=== PATIENT | male | born 2000 | race Caucasian/White ===

== ENCOUNTER 2020-06-19 07:17 | Inpatient (IN) | payer OTHER, MEDICAID ==
[~2020-06-19] VITALS: Ht 175.3 cm; Wt 72.2 kg
--- NOTE | 2020-06-19 08:15 | NUR ---
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 STEADY UPON AMBULATION. NO ACUTE DISTRESS NOTED AT THIS TIME.
[2020-06-19] MEDS ORDERED: VANCOMYCIN PER PHARMACY MC ONE (09:00)
[2020-06-19] MEDS ORDERED: SODIUM CHLORIDE 0.9% 1,000ML IVBOLUS ONE (09:00)
[2020-06-19] MEDS ORDERED: AMPICILLIN/SULBACTAM 3 GM in SODIUM CHLORIDE 0.9% 100 ML IV ONE (09:00)
[2020-06-19] MEDS ORDERED: VANCOMYCIN 1,800 MG in SODIUM CHLORIDE 0.9% 250 ML IV ONE (09:00)
[2020-06-19] MEDS ORDERED: SODIUM CHLORIDE FLUSH 10ML SYR IVF ONE (09:00)
--- NOTE | 2020-06-19 09:00 | NUR ---
PT UPRIGHT ON GURNEY AWAKE & COMFORTABLE, RESPONDS APPROP TO STAFF, LAB AT FOR BLOOD CX, COMFORT MEASURES PROVIDED, CALL LIGHT WITHIN REACH.
[2020-06-19 09:29] LABS: MEAN CORPUSCULAR HEMOGLOBIN 29.3 pg (27.5-34.5); MEAN CORPUSCULAR HGB CONC 32.9 g/dL (33.2-36.2); MEAN CORPUSCULAR VOLUME 89.1 fL (81-97); MEAN PLATELET VOLUME 7.3 fL (7.4-10.4); PLATELET COUNT 299 x10^3/uL (130-400); RED BLOOD COUNT 4.58 x10^6/uL (4.38-5.82); RED CELL DISTRIBUTION WIDTH 13.3 % (9.4-14.8)
[2020-06-19 09:37] LABS: ALANINE AMINOTRANSFERASE 22 U/L (12-78); ALBUMIN 3.4 g/dL (3.4-5.0); ANION GAP 5 mmol/L (5-15); CALCIUM 9.1 mg/dL (8.5-10.1); CHLORIDE 100 mmol/L (98-107); CREATININE 0.99 mg/dL (0.7-1.3)
[2020-06-19 09:40] LABS: ALKALINE PHOSPHATASE 68 U/L (45-117); TOTAL PROTEIN 7.1 g/dL (6.4-8.2)
[2020-06-19 09:45] LABS: BASOPHILS # (AUTO) 0.01 x10^3/uL (0-0.1); BASOPHILS % (AUTO) 0 % (0-1); EOSINOPHILS # (AUTO) 0.09 x10^3/uL (0-0.4); EOSINOPHILS % (AUTO) 1 % (1-7); LYMPHOCYTES # (AUTO) 1.16 x10^3/uL (1-3.4); LYMPHOCYTES % (AUTO) 7 % (22-44); MD SCAN; MONOCYTES # (AUTO) 1.46 x10^3/uL (0.2-0.8); MONOCYTES % (AUTO) 9 % (2-9); NEUTROPHILS # (AUTO) 12.88 x10^3/uL (1.8-6.8); NEUTROPHILS % (AUTO) 83 % (42-75)
--- NOTE | 2020-06-19 10:02 | NUR ---
PT REMAINS UPRIGHT ON GURNEY WITH EYES CLOSED & ABLE TO DOZE OFF, RESPONDS APPROP TO STAFF, NAD, NO NEEDS AT THIS TIME, CALL LIGHT WITHIN REACH.
--- NOTE | 2020-06-19 10:44 | NUR ---
PT RETURNED FROM CT
[2020-06-19] MEDS ORDERED: OMNIPAQUE 350 MG/ML, 100ML BOTTLE ONE (10:52)
--- NOTE | 2020-06-19 11:00 | NUR ---
PT UPRIGHT ON GURNEY WITH EYES CLOSED & ABLE TO DOZE OFF, RESPONDS APPROP TO STAFF, NAD, NO NEEDS AT THIS TIME, CALL LIGHT WITHIN REACH. UPDATED ON POC BY DR HENRIQUEZ.
[2020-06-19] MEDS ORDERED: KETOROLAC 30 MG/1 ML IVPush ONE (11:30)
[2020-06-19] MEDS ORDERED: KETOROLAC 30 MG/1 ML ONE (11:30)
--- NOTE | 2020-06-19 11:37 | NUR ---
Pt to be admitted to medical, room 368. Report called to Coby.
[2020-06-19 12:26] VITALS: BP 114/71
[2020-06-19 12:54] VITALS: BP 114/71
[2020-06-19] MEDS ORDERED: SODIUM CHLORIDE 0.9% 1,000 ML IV SCH ×2 (15:27→15:30)
[2020-06-19] MEDS ORDERED: VANCOMYCIN PER PHARMACY MC PRN (15:30)
[2020-06-19] MEDS ORDERED: ONDANSETRON 2MG/ML, 2ML IVPush PRN (15:30)
[2020-06-19] MEDS ORDERED: PROMETHAZINE 25 MG/ML, 1ML IM PRN (15:30)
[2020-06-19] MEDS ORDERED: HYDROcodone/APAP 5/325 TABLET PO PRN (15:30)
[2020-06-19] MEDS ORDERED: HEPARIN 5,000 UNITS/ML, 1ML SQ SCH (15:30)
[2020-06-19] MEDS ORDERED: LABETALOL 5MG/ML, 20ML IVPush PRN (15:30)
[2020-06-19] MEDS ORDERED: IBUPROFEN 600 MG TABLET PO PRN (15:30)
[2020-06-19] MEDS ORDERED: ACETAMINOPHEN 325 MG TABLET PO PRN (15:30)
[2020-06-19] MEDS ORDERED: AMPICILLIN/SULBACTAM 1,500 MG in SODIUM CHLORIDE 0.9% 50 ML IV SCH (15:30)
[2020-06-19] MEDS ORDERED: morphine SULFATE 10 MG/ML, 1ML IVPush PRN (15:30)
[2020-06-19] MEDS ORDERED: POTASSIUM CHLORIDE 20 MEQ TAB.ER.PRT PO SCH (17:00)
== END 2020-06-19 16:27 | disposition left against medical advice (07) | DRG 872 ==
LOC: ED 08:28 → EDIP 11:24 → 3N 12:13
PROVIDERS: ADMIT Internal Medicine; ATTEND Internal Medicine
DX: A41.9 Sepsis, unspecified organism (principal); E87.1 Hypo-osmolality and hyponatremia; L03.114 Cellulitis of left upper limb; E87.6 Hypokalemia; E86.1 Hypovolemia; F90.9 Attention-deficit hyperactivity disorder, unspecified type; K52.9 Noninfective gastroenteritis and colitis, unspecified; Z53.29 Procedure and treatment not carried out because of patient's decision for other reasons
CPT/HCPCS: 36415; 80053; 80307; 83605; 84145; 85025; 87040; G0378; J0295; J1885; J3370; Q9967; J7030; J7050

== ENCOUNTER 2020-06-20 02:36 | Inpatient (IN) | payer OTHER, MEDICAID ==
[~2020-06-20] VITALS: Ht 175.3 cm; Wt 74.2 kg
[2020-06-20] MEDS ORDERED: MORPHINE SULFATE 4 MG/ML, 1ML ONE (02:59)
[2020-06-20] MEDS ORDERED: MORPHINE SULFATE 4 MG/ML, 1ML IVPush PRN (03:00)
[2020-06-20] MEDS ORDERED: AMPICILLIN/SULBACTAM 3 GM in SODIUM CHLORIDE 0.9% 100 ML IV ONE (03:00)
[2020-06-20] MEDS ORDERED: VANCOMYCIN 1,400 MG in SODIUM CHLORIDE 0.9% 250 ML IV ONE (03:00)
[2020-06-20] MEDS ORDERED: DIPH,PERTUSS(ACELL),TET VAC/PF 0.5 ML IM-VACC ONE ×2 (03:00)
[2020-06-20] MEDS ORDERED: VANCOMYCIN PER PHARMACY MC PRN ×2 (03:00→03:30)
[2020-06-20] MEDS ORDERED: DIPHENHYDRAMINE 25 MG CAPSULE PO PRN (03:30)
[2020-06-20] MEDS ORDERED: morphine SULFATE 10 MG/ML, 1ML IVPush PRN (03:30)
[2020-06-20] MEDS ORDERED: ONDANSETRON ODT 4 MG PO PRN (03:30)
[2020-06-20] MEDS ORDERED: ENALAPRILAT 1.25 MG/ML, 2ML IVPush PRN (03:30)
[2020-06-20] MEDS ORDERED: ONDANSETRON 2MG/ML, 2ML IVPush PRN (03:30)
[2020-06-20] MEDS ORDERED: ACETAMINOPHEN 325 MG TABLET PO PRN (03:30)
--- NOTE | 2020-06-20 03:30 | NUR ---
REPORT CALLED TO ANALILIA VASQUEZ
[2020-06-20 03:38] VITALS: BP 111/65
[2020-06-20] MEDS ORDERED: PHARMACOKINETIC MONITORING MC PRN (04:00)
[2020-06-20 06:30] VITALS: BP 108/63
[2020-06-20] MEDS: HEPARIN 5,000 UNITS/ML, 1ML SQ SCH ×3 (08:30→21:03)
[2020-06-20] MEDS: AMPICILLIN/SULBACTAM 1,500 MG in SODIUM CHLORIDE 0.9% 50 ML IV SCH ×3 (09:07→21:03)
[2020-06-20 09:36] LABS: BASOPHILS # (AUTO) 0.04 x10^3/uL (0-0.1); BASOPHILS % (AUTO) 0 % (0-1); EOSINOPHILS # (AUTO) 0.21 x10^3/uL (0-0.4); EOSINOPHILS % (AUTO) 2 % (1-7); LYMPHOCYTES # (AUTO) 1.36 x10^3/uL (1-3.4); LYMPHOCYTES % (AUTO) 13 % (22-44); MD NO; MEAN CORPUSCULAR HEMOGLOBIN 29.2 pg (27.5-34.5); MEAN CORPUSCULAR HGB CONC 32.7 g/dL (33.2-36.2); MEAN PLATELET VOLUME 7.1 fL (7.4-10.4); MONOCYTES % (AUTO) 11 % (2-9); NEUTROPHILS # (AUTO) 7.44 x10^3/uL (1.8-6.8); NEUTROPHILS % (AUTO) 73 % (42-75); PLATELET COUNT 271 x10^3/uL (130-400); RED CELL DISTRIBUTION WIDTH 13.6 % (9.4-14.8)
[2020-06-20 09:58] LABS: ALBUMIN 2.9 g/dL (3.4-5.0); ANION GAP 6 mmol/L (5-15); CALCIUM 8.3 mg/dL (8.5-10.1); CHLORIDE 105 mmol/L (98-107)
[2020-06-20 10:04] LABS: ALANINE AMINOTRANSFERASE 22 U/L (12-78); ALKALINE PHOSPHATASE 60 U/L (45-117); BILIRUBIN,TOTAL 0.5 mg/dL (0.2-1.0); CREATININE 0.77 mg/dL (0.7-1.3); TOTAL PROTEIN 6.4 g/dL (6.4-8.2)
[2020-06-20 12:55] VITALS: BP 105/68
[2020-06-20] MEDS: HYDROcodone/APAP 5/325 TABLET PO PRN ×2 (13:21→21:10)
[2020-06-20] MEDS: VANCOMYCIN 1,400 MG in SODIUM CHLORIDE 0.9% 250 ML IV SCH (16:13)
[2020-06-20 21:14] VITALS: BP 108/63
[2020-06-21 02:25] VITALS: BP 92/54
[2020-06-21] MEDS: AMPICILLIN/SULBACTAM 1,500 MG in SODIUM CHLORIDE 0.9% 50 ML IV SCH ×4 (02:53→21:14)
[2020-06-21] MEDS: VANCOMYCIN 1,400 MG in SODIUM CHLORIDE 0.9% 250 ML IV SCH ×2 (04:24→17:11)
[2020-06-21 05:27] LABS: BASOPHILS # (AUTO) 0.03 x10^3/uL (0-0.1); BASOPHILS % (AUTO) 0 % (0-1); EOSINOPHILS # (AUTO) 0.22 x10^3/uL (0-0.4); EOSINOPHILS % (AUTO) 3 % (1-7); LYMPHOCYTES # (AUTO) 1.73 x10^3/uL (1-3.4); LYMPHOCYTES % (AUTO) 21 % (22-44); MD NO; MEAN CORPUSCULAR HEMOGLOBIN 29.4 pg (27.5-34.5); MEAN CORPUSCULAR HGB CONC 32.6 g/dL (33.2-36.2); MEAN PLATELET VOLUME 7.9 fL (7.4-10.4); MONOCYTES # (AUTO) 0.82 x10^3/uL (0.2-0.8); MONOCYTES % (AUTO) 10 % (2-9); NEUTROPHILS # (AUTO) 5.39 x10^3/uL (1.8-6.8); NEUTROPHILS % (AUTO) 66 % (42-75); PLATELET COUNT 282 x10^3/uL (130-400); RED BLOOD COUNT 4.37 x10^6/uL (4.38-5.82); RED CELL DISTRIBUTION WIDTH 13.3 % (9.4-14.8)
[2020-06-21 05:41] LABS: ANION GAP 6 mmol/L (5-15); CALCIUM 8.7 mg/dL (8.5-10.1); CHLORIDE 107 mmol/L (98-107); CREATININE 0.69 mg/dL (0.7-1.3)
[2020-06-21] MEDS: HEPARIN 5,000 UNITS/ML, 1ML SQ SCH ×3 (06:05→22:55)
[2020-06-21 07:47] VITALS: BP 110/71
[2020-06-21] MEDS: HYDROcodone/APAP 5/325 TABLET PO PRN (09:45)
[2020-06-21 13:42] VITALS: BP 94/64
[2020-06-21 19:36] VITALS: BP 114/64
[2020-06-22] MEDS: VANCOMYCIN 1,400 MG in SODIUM CHLORIDE 0.9% 250 ML IV SCH ×2 (01:00→10:03)
[2020-06-22 01:12] VITALS: BP 119/70
[2020-06-22] MEDS: AMPICILLIN/SULBACTAM 1,500 MG in SODIUM CHLORIDE 0.9% 50 ML IV SCH ×2 (02:57→08:01)
[2020-06-22] MEDS: HEPARIN 5,000 UNITS/ML, 1ML SQ SCH (06:02)
[2020-06-22 08:00] VITALS: BP 102/68
[2020-06-22] MEDS ORDERED: AMOX1TAB64 PO (10:57)
[2020-06-22] MEDS ORDERED: DOXY100T PO (10:57)
[2020-06-22] MEDS ORDERED: ACET325T26 PO (10:57)
[2020-06-22] MEDS ORDERED: DOXYCYCLINE 100MG CAP PO ONE (12:00)
[2020-06-22] MEDS ORDERED: AMOXICILLIN/CLAV 875-125MG TABLET PO ONE (12:00)
== END 2020-06-22 12:18 | disposition home or self-care (01) | DRG 603 ==
LOC: SUATTDRO 03:04 → ED 03:21 → EDIP 03:29 → 3N 03:41 → DCLOUNGE 06-22 12:11
PROVIDERS: ADMIT Hospitalist; ATTEND Internal Medicine
DX: L03.114 Cellulitis of left upper limb (principal); F15.90 Other stimulant use, unspecified, uncomplicated; D64.9 Anemia, unspecified; E87.6 Hypokalemia
CPT/HCPCS: 36415; 80048; 80053; 80202; 85025; 90715; 96361; 96374; 99285; G0378; J0295; J1644; J3370; J2270; J7050

== ENCOUNTER 2020-08-08 22:19 | Emergency (ER) | payer MEDICAID, OTHER ==
[~2020-08-08] VITALS: Ht 175.3 cm; Wt 70.1 kg
[~2020-08-08 22:19] MED LIST: ACET325T26 PO; AMOX1TAB64 PO; DOXY100T PO
[2020-08-08 22:29] VITALS: BP 139/88
[2020-08-08] MEDS ORDERED: AZITHROMYCIN 250 MG TABLET ONE (22:47)
[2020-08-08] MEDS ORDERED: CEFTRIAXONE 250 MG ONE (22:47)
[2020-08-08] MEDS ORDERED: AZITHROMYCIN 250 MG TABLET PO ONE (23:00)
[2020-08-08] MEDS ORDERED: CEFTRIAXONE 250 MG IM ONE (23:00)
[2020-08-08] MEDS ORDERED: AZITHROMYCIN 500 MG TABLET PO ONE (23:00)
== END 2020-08-08 23:02 | disposition home or self-care (01) ==
LOC: ED 22:49
DX: A56.01 Chlamydial cystitis and urethritis (principal); A56.8 Sexually transmitted chlamydial infection of other sites; R30.0 Dysuria
CPT/HCPCS: 96372; 99283; J0696

== ENCOUNTER 2020-09-11 19:05 | Emergency (ER) | payer MEDICAID ==
[~2020-09-11] VITALS: Ht 175.3 cm; Wt 72.3 kg
[2020-09-11 19:07] VITALS: BP 120/69
--- NOTE | 2020-09-11 19:11 | NUR ---
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
--- NOTE | 2020-09-11 19:45 | NUR ---
COVID SWAB WALKED TO LAB.
[2020-09-11] MEDS ORDERED: CEFTRIAXONE 250 MG ONE (19:53)
[2020-09-11] MEDS ORDERED: AZITHROMYCIN 250 MG TABLET ONE (19:54)
--- NOTE | 2020-09-11 19:55 | NUR ---
REQUEST TO PHARM FOR MEDICATION.
[2020-09-11] MEDS ORDERED: CEFTRIAXONE 250 MG IM ONE (20:00)
[2020-09-11] MEDS ORDERED: BICILLIN-LA 2,400,000 UNITS/4 ML IM ONE (20:00)
[2020-09-11] MEDS ORDERED: AZITHROMYCIN 500 MG TABLET PO ONE (20:00)
--- NOTE | 2020-09-11 20:20 | NUR ---
PT MEDICATED PER EMAR. LAB AT BEDSIDE.
== END 2020-09-11 21:14 | disposition home or self-care (01) ==
LOC: ED 21:07
DX: R30.0 Dysuria (principal); Z20.828 Contact with and (suspected) exposure to other viral communicable diseases; R05 Cough; M79.10 Myalgia, unspecified site; R94.31 Abnormal electrocardiogram [ECG] [EKG]; Z20.2 Contact with and (suspected) exposure to infections with a predominantly sexual mode of transmission
CPT/HCPCS: 36415; 71045; 86592; 87635; 93005; 96372; 99285; J0561; J0696

== ENCOUNTER 2020-12-07 11:19 | Emergency (ER) | payer MEDICAID ==
[~2020-12-07] VITALS: Ht 175.3 cm; Wt 73.3 kg
[2020-12-07 11:22] VITALS: BP 122/86
[2020-12-07] MEDS ORDERED: BICILLIN-LA 2,400,000 UNITS/4 ML IM ONE (12:00)
--- NOTE | 2020-12-07 12:20 | NUR ---
PT MEDICATED PER EMAR. PT REPORTS HAVING HAD PENICILLIN BEFORE FOR SAME WO ADVERSE EFFECT. PT REFUSING OBSERVATION PERIOD POST IM EMERGENCY SERVICES PROFESSIONAL. DC EDUCATION PROVIDED, PT DEMONSTRATES UNDERSTANDING. PT AMBULATED STEADILY TO DC WITH RN
== END 2020-12-07 12:22 | disposition home or self-care (01) ==
LOC: ED 12:00
DX: N50.9 Disorder of male genital organs, unspecified (principal); R00.0 Tachycardia, unspecified
CPT/HCPCS: 36415; 86592; 87491; 87591; 96372; 99283; J0561

== ENCOUNTER 2021-01-07 18:40 | Emergency (ER) | payer OTHER, MEDICAID ==
[~2021-01-07] VITALS: Ht 175.3 cm; Wt 77.3 kg
[2021-01-07 20:14] VITALS: BP 130/76
== END 2021-01-07 21:28 | disposition home or self-care (01) ==
LOC: ED 21:10
DX: K08.89 Other specified disorders of teeth and supporting structures (principal); Z20.822 Contact with and (suspected) exposure to COVID-19; B34.9 Viral infection, unspecified; R51.9 Headache, unspecified
CPT/HCPCS: 87635; 99283